=== PATIENT | female | born 1985 | race Caucasian/White ===

== ENCOUNTER 2017-11-16 14:05 | Emergency (ER) | payer OTHER ==
[~2017-11-16] VITALS: Ht 165.1 cm; Wt 53.2 kg
[2017-11-16] MEDS ORDERED: HYDROGEN PEROXIDE 118 ML SOLUTION TP ONE (15:30)
[2017-11-16 17:10] VITALS: BP 121/71
== END 2017-11-16 17:13 | disposition home or self-care (01) ==
LOC: EMS 14:07
DX: H61.23 Impacted cerumen, bilateral (principal)
CPT/HCPCS: 69209; 99282

== ENCOUNTER 2020-08-28 17:37 | Emergency (ER) | payer OTHER ==
[~2020-08-28] VITALS: Ht 172.7 cm; Wt 56.8 kg
[2020-08-28] MEDS ORDERED: CARBAMIDE PEROXIDE 6.5% 15 ML OTIC SOLUTION AU ONE (18:15)
[2020-08-28 20:30] VITALS: BP 115/80
== END 2020-08-28 20:30 | disposition home or self-care (01) ==
LOC: EMS 17:37
DX: H61.23 Impacted cerumen, bilateral (principal)
CPT/HCPCS: 69209; 99282; 99283